=== PATIENT | female | born 1965 | race American Indian/Alaskan Native ===

== ENCOUNTER 2021-08-22 03:50 | Emergency (ER) | payer SELFPAY ==
[2021-08-22 05:34] VITALS: BP 118/81
[2021-08-22] MEDS: THIAMINE 100 MG, FOLIC ACID 1 MG, MULTIPLE VITAMIN INJ, ADULT 10 ML in SODIUM CHLORIDE ... IV ONE (06:58)
== END 2021-08-22 06:58 | disposition left against medical advice (07) ==
LOC: ED 03:50
DX: F10.10 Alcohol abuse, uncomplicated (principal); Z53.21 Procedure and treatment not carried out due to patient leaving prior to being seen by health care provider
CPT/HCPCS: J3411; J3490; J7030